=== PATIENT | male | born 1950 | race Caucasian/White ===

== ENCOUNTER 2017-09-01 19:49 | Emergency (ER) | payer OTHER ==
[~2017-09-01] VITALS: Ht 170.2 cm; Wt 81.5 kg
[2017-09-01 19:52] VITALS: BP 142/76; PULSE 65; RESP 16; TEMP 98.5; O2SAT 95
[2017-09-01] MEDS ORDERED: TETANUS/DIPHTHERIA TOXOID ADULT 0.5 ML VIAL IM ONE (21:30)
[2017-09-01] MEDS ORDERED: LIDOCAINE HCL 1% 50 ML VIAL INFIL ONE (21:30)
--- NOTE | 2017-09-01 21:48 | PD ---
HPI Chief Complaint: Laceration/Skin Injury Time Seen by Provider: 21:20 Travel History International Travel<30 days: No Contact w/Intl Traveler<30days: No Traveled to known affect area: No History of Present Illness HPI Patient is a 67-year-old male presenting to the emergency department for evaluation of the laceration. Patient states he was at work when a box dropped on his right wrist. Injury occurred approximately 6 hours prior to arrival. He currently denies any pain. He denies any numbness, weakness or loss of function in his hand or fingers. He is uncertain when his last tetanus vaccine was given. He denies any other injury. [facility] Past Medical History Diminished Hearing: Yes ([facility] LEFT EAR) Hypertension: Yes Immunizations Current: Yes Pancreatitis: Yes (POSSIBLE) Tetanus Vaccination: > 5 Years Past Surgical History Genitourinary Surgery: Yes (ORCHIECTOMY) Social History Alcohol Use: Yes (OCC) Tobacco Use: No Substance Use: No Allergies-Medications (Allergen,Severity, Reaction): Coded Allergies: No Known Allergies (Unverified , 09/01/17) Review of Systems Except as stated in HPI: all other systems reviewed are Neg Skin: Positive Other (laceration) Physical Exam Narrative GENERAL: Well-developed, well-nourished, alert male. Resting comfortably in no acute distress. SKIN: Warm and dry. 2 cm superficial laceration to the inner right wrist. Base of wound is well visualized. HEAD: Normocephalic. EYES: No scleral icterus. No injection or drainage. NECK: Supple, trachea midline. No JVD or lymphadenopathy. CARDIOVASCULAR: Regular rate and rhythm without murmurs, gallops, or rubs. RESPIRATORY: Breath sounds equal bilaterally. No accessory muscle use. GASTROINTESTINAL: Abdomen soft, non-tender, nondistended. MUSCULOSKELETAL: No cyanosis, or edema. Full rectifying attendant strength on the right, full range of motion in right wrist and hand. 2+ radial pulse, persistent 3 second capillary refill. BACK: Nontender without obvious deformity. No CVA tenderness. Data Data Last Documented VS Vital Signs Date Time Temp Pulse Resp B/P (MAP) Pulse Ox O2 Delivery O2 Flow Rate FiO2 09/01/17 21:42 09/01/17 19:52 98.5 65 16 95 Room Air Orders Orders Tetanus/Diphtheria Tox Adult (Tetanus/Di (09/01/17 21:30) Lidocaine 1% Inj (50 Ml) (Xylocaine 1% I (09/01/17 21:30) MDM Medical Decision Making Medical Screen Exam Complete: Yes Emergency Medical Condition: Yes Interpretation(s) Vital Signs Date Time Temp Pulse Resp B/P (MAP) Pulse Ox O2 Delivery O2 Flow Rate FiO2 09/01/17 21:42 09/01/17 19:52 98.5 65 16 142/76 (98) 95 Room Air Differential Diagnosis Laceration versus abrasion versus contusion versus less likely fracture. Narrative Course Patient is a 59-year-old male presented to emergency room evaluation of laceration to his right wrist that occurred approximately 6 hours prior to arrival while he was working. Patient is neurovascular intact and no focal deficits noted on exam. Please see procedure for laceration repair. Patient was given verbal wound care instructions. He was also educated on the signs and symptoms of infection. He was advised that he would need to return in 7-10 days to have stitches removed. He was encouraged to keep sutures clean and dry and covered if there was a chance of swelling. He verbalized understanding of instructions. Patient stable for discharge. Procedures Procedure Narrative LACERATION LOCATION: Right wrist, and her LENGTH: 2 cm NUMBER OF STITCHES/NELDA: 5 stitches REPAIR: The area of the laceration was prepped with Betadine and sterilely draped. The laceration was infiltrated with 1% lidocaine. The wound was copiously irrigated and explored without evidence of foreign body, tendon injury or neurovascular injury. The wound was closed using 5-0 Ethilon. This was a 1 layer repair. A sterile dressing was applied. The patient was advised to keep the dressing clean and dry. Patient tolerated the procedure well. Diagnosis Primary Impression: Laceration of wrist Qualified Codes: S61.511A - Laceration without foreign body of right wrist, initial encounter Referrals: Primary Care Physician 1 week Patient Instructions: Care For Your Stitches (ED), General Instructions, Laceration (ED) Departure Forms: Tests/Procedures, Work Release Enter return to work date: Sep 02, 2017 Special Instructions: Stitches need to be kept clean and dry, cover with nonocclusive dressing if there is a chance of soiling. Additional Instructions: Return to emergency department in 7-10 days to have stitches removed Keep sutures clean and dry, cover with nonocclusive dressing He may shower but avoid submersion in water until stitches are removed wound is well-healed. Return to emergency department immediately for any new or worsening symptoms Med/Other Pt SpecificInfo: No Change to Meds Disposition: 01 DISCHARGE HOME Condition: Stable Tamy Browning Sep 01, 2017 21:48
== END 2017-09-01 21:53 | disposition home or self-care (01) ==
LOC: NEPK 19:49
DX: S61.511A Laceration without foreign body of right wrist, initial encounter (principal); I10 Essential (primary) hypertension; H91.92 Unspecified hearing loss, left ear; Z23 Encounter for immunization; Z87.19 Personal history of other diseases of the digestive system; W20.8XXA Other cause of strike by thrown, projected or falling object, initial encounter; Y99.0 Civilian activity done for income or pay
CPT/HCPCS: 12001; 90471; 90714